=== PATIENT | male | born 1955 | race Caucasian/White ===

== ENCOUNTER 2023-01-09 02:32 | Inpatient (IN) | payer MEDICARE, OTHER ==
[2023-01-09] MEDS ORDERED: Ondansetron PF 4 MG/2 ML Vial IVP PRN (03:59)
[2023-01-09 04:01] VITALS: BMI 39.1
[2023-01-09] MEDS ORDERED: HumaLOG 300 UNITS/3 ML VIAL SC PRN (04:01)
[2023-01-09] MEDS ORDERED: Dextrose 5% in Water 1,000 ML IV PRN (04:01)
[2023-01-09] MEDS ORDERED: Dextrose 50% Abboject 50 ML SYRINGE SLOW IVP PRN (04:01)
[2023-01-09 06:39] LABS: Hemoglobin A1c 8.7 % (4.0-6.0)
[2023-01-09 06:40] LABS: #Eosinphils 0.1 thou/uL (0.0-0.7); #Lymphocytes 1.7 thou/uL (1.20-3.40); #Monocytes 1.2 thou/uL (0.11-0.59); #Neutrophils 9.2 thou/uL (1.40-6.50); %Basophils 0.2 % (0.0-1.0); %Eosinophils 1.1 % (0.0-10.0); %Monocytes 9.6 % (0.0-10.0); %Neutrophils 75.2 % (42.0-75.0); Hemoglobin 14.6 g/dL (14.0-18.0); Mean Corpuscular HGB CONC 33.6 g/dL (32.0-36.0); Mean Corpuscular Hemoglobin 29.5 pg (27.0-31.0); Mean Platelet Volume 8.8 fL (7.4-10.4); Platelet Count 130 10x3/uL (130-400); RBC Distribution Width 12.3 % (11.5-14.5); Red Blood Cell (RBC) Count 4.94 mill/uL (4.70-6.10); White Blood Cell (WBC) Count 12.3 10x3/uL (4.8-10.8)
[2023-01-09 06:54] LABS: Anion Gap 11 mmol/L (10-20); BUN (Urea Nitrogen) 14 mg/dL (8.4-25.7); Calc. Creatinine Clearance 87 mL/min (70-130); Calcium 8.9 mg/dL (7.8-10.44); Carbon Dioxide 25 mmol/L (23-31); Chloride 100 mmol/L (98-107); Estimated GFR 60; Glucose 215 mg/dL (80-115); Sodium 132 mmol/L (136-145)
[2023-01-09] MEDS ORDERED: Senokot S 8.6-50 MG TAB PO PRN (07:24)
[2023-01-09] MEDS: Vancomycin 1 GM in Premix Bag 1 BAG IVPB SCH ×2 (08:30→19:52)
[2023-01-09] MEDS: Sodium Chloride 0.9% 1,000 ML IV SCH (08:30)
[2023-01-09] MEDS: Cefepime 1 GM in Sodium Chloride 0.9% 100 ML IVPB SCH ×2 (10:14→21:32)
[2023-01-09] MEDS: Acetaminophen 325 MG TAB PO PRN ×2 (10:16→19:52)
[2023-01-09] MEDS: HumaLOG 300 UNITS/3 ML VIAL SC PRN (12:30)
[2023-01-09] MEDS: Nicotine 21 MG PATCH TD SCH (12:31)
[2023-01-09] MEDS: traMADol HCl 50 MG TAB PO PRN (19:51)
[2023-01-10] MEDS: Sodium Chloride 0.9% 1,000 ML IV SCH ×2 (00:09→21:10)
[2023-01-10] MEDS: Acetaminophen 325 MG TAB PO PRN ×3 (05:30→17:14)
[2023-01-10] MEDS: traMADol HCl 50 MG TAB PO PRN ×3 (05:30→18:23)
[2023-01-10] MEDS: HumaLOG 300 UNITS/3 ML VIAL SC PRN (05:31)
[2023-01-10 06:11] LABS: #Eosinphils 0.3 thou/uL (0.0-0.7); #Lymphocytes 1.8 thou/uL (1.20-3.40); #Monocytes 1.3 thou/uL (0.11-0.59); #Neutrophils 9.6 thou/uL (1.40-6.50); %Basophils 0.3 % (0.0-1.0); %Eosinophils 2.1 % (0.0-10.0); %Lymphocytes 14.1 % (21.0-51.0); %Monocytes 9.9 % (0.0-10.0); %Neutrophils 73.6 % (42.0-75.0); Hemoglobin 13.5 g/dL (14.0-18.0); Mean Corpuscular HGB CONC 34.1 g/dL (32.0-36.0); Mean Corpuscular Hemoglobin 29.9 pg (27.0-31.0); Mean Corpuscular Volume 87.7 fl (78.0-98.0); Mean Platelet Volume 8.4 fL (7.4-10.4); Platelet Count 134 10x3/uL (130-400); RBC Distribution Width 12.1 % (11.5-14.5); Red Blood Cell (RBC) Count 4.53 mill/uL (4.70-6.10)
[2023-01-10 06:39] LABS: ALT (SGPT) 8 U/L (8-55); AST (SGOT) 10 U/L (5-34); Albumin 3.2 g/dL (3.4-4.8); Alkaline Phosphatase 50 U/L (40-110); Anion Gap 13 mmol/L (10-20); BUN (Urea Nitrogen) 17 mg/dL (8.4-25.7); Calc. Creatinine Clearance 98 mL/min (70-130); Calcium 8.7 mg/dL (7.8-10.44); Carbon Dioxide 24 mmol/L (23-31); Cardiac Risk 4.7 (Less than 4.5); Chloride 101 mmol/L (98-107); Cholesterol 150 mg/dl (< 200 Desired); Estimated GFR 69; Globulin 3.1 g/dL (2.4-3.5); Glucose 149 mg/dL (80-115); HDL Cholesterol 32 mg/dL (>60 Neg Risk); LDL Cholesterol, Calculated 104 mg/dL; Potassium 3.9 mmol/L (3.5-5.1); Protein, Total 6.3 g/dL (5.8-8.1); Sodium 134 mmol/L (136-145); Triglycerides 72 mg/dL (Less than 150)
[2023-01-10 06:40] LABS: Vancomycin, Trough 10.5 ug/mL
[2023-01-10] MEDS ORDERED: Vancomycin 1.5 GRAM/300 ML BAG 1.5 GM in Premix Bag 1 BAG IVPB SCH (08:00)
[2023-01-10] MEDS: Cefepime 1 GM in Sodium Chloride 0.9% 100 ML IVPB SCH (08:28)
[2023-01-10] MEDS: Nicotine 21 MG PATCH TD SCH (12:04)
[2023-01-10] MEDS ORDERED: Ketorolac Tromethamine 30 MG/ML VIAL IVP PRN (18:12)
[2023-01-10] MEDS ORDERED: Acetaminophen 500 MG TAB PO PRN (18:12)
[2023-01-10] MEDS ORDERED: Ketorolac Tromethamine 30 MG/ML VIAL IVP SCH (18:15)
[2023-01-10] MEDS ORDERED: Acetaminophen 500 MG TAB PO SCH (18:15)
[2023-01-10] MEDS ORDERED: Piperacillin/Tazobactam 3.375 GM in Sodium Chloride 0.9% 100 ML IVPB SCH (18:30)
[2023-01-10] MEDS ORDERED: Cefepime 2 GM in Sodium Chloride 0.9% 100 ML IVPB SCH (21:00)
[2023-01-10] MEDS: Piperacillin/Tazobactam 3.375 GM in Sodium Chloride 0.9% 100 ML IVPB SCH (21:16)
[2023-01-10] MEDS: Morphine 4 MG/ML VIAL SLOW IVP PRN (21:16)
[2023-01-11] MEDS: Piperacillin/Tazobactam 3.375 GM in Sodium Chloride 0.9% 100 ML IVPB SCH ×3 (05:28→21:19)
[2023-01-11] MEDS: Nicotine 21 MG PATCH TD SCH (12:12)
[2023-01-11] MEDS ORDERED: fentaNYL 50 mcg/mL 1 mL Vial ONE ×3 (12:46→14:20)
[2023-01-11] MEDS ORDERED: fentaNYL PF 100 MCG/2 ML SYRINGE ONE (12:47)
[2023-01-11] MEDS ORDERED: Sodium Chloride 0.9% 100 ML ONE (13:04)
[2023-01-11] MEDS ORDERED: Piperacillin/Tazobactam 3.375 GM VIAL ONE (13:04)
[2023-01-11] MEDS ORDERED: PROPOFOL 200 MG/20 ML VIAL ONE (13:19)
[2023-01-11] MEDS ORDERED: Lidocaine 1% PF 5 ML VIAL ONE (13:19)
[2023-01-11] MEDS ORDERED: Cyclobenzaprine 10 MG TAB PO PRN (15:14)
[2023-01-11] MEDS ORDERED: traMADol HCl 50 MG TAB PO PRN (15:14)
[2023-01-11] MEDS: Dextrose 5 %-0.45 % NaCl 1,000 ML IV SCH (15:43)
[2023-01-11] MEDS: traMADol HCl 50 MG TAB PO SCH ×2 (17:46→22:28)
[2023-01-11] MEDS: Sodium Chloride 0.9% 1,000 ML IV SCH (17:50)
[2023-01-11] MEDS: Acetaminophen 500 MG TAB PO SCH ×2 (18:20→22:27)
[2023-01-12] MEDS: Sodium Chloride 0.9% 1,000 ML IV SCH (03:20)
[2023-01-12] MEDS: Piperacillin/Tazobactam 3.375 GM in Sodium Chloride 0.9% 100 ML IVPB SCH ×3 (05:36→20:43)
[2023-01-12] MEDS: traMADol HCl 50 MG TAB PO SCH ×4 (05:37→22:23)
[2023-01-12] MEDS: Acetaminophen 500 MG TAB PO SCH ×4 (05:37→22:23)
[2023-01-12 08:10] LABS: #Eosinphils 0.3 thou/uL (0.0-0.7); #Lymphocytes 1.7 thou/uL (1.20-3.40); #Monocytes 0.8 thou/uL (0.11-0.59); #Neutrophils 5.4 thou/uL (1.40-6.50); %Basophils 0.5 % (0.0-1.0); %Eosinophils 4.1 % (0.0-10.0); %Lymphocytes 20.8 % (21.0-51.0); %Neutrophils 64.7 % (42.0-75.0); Hemoglobin 12.7 g/dL (14.0-18.0); Mean Corpuscular Hemoglobin 30.2 pg (27.0-31.0); Mean Corpuscular Volume 88.8 fl (78.0-98.0); Mean Platelet Volume 8.1 fL (7.4-10.4); Platelet Count 176 10x3/uL (130-400); Red Blood Cell (RBC) Count 4.19 mill/uL (4.70-6.10); White Blood Cell (WBC) Count 8.3 10x3/uL (4.8-10.8)
[2023-01-12 08:54] LABS: Anion Gap 11 mmol/L (10-20); BUN (Urea Nitrogen) 27 mg/dL (8.4-25.7); Calc. Creatinine Clearance 74 mL/min (70-130); Calcium 8.6 mg/dL (7.8-10.44); Carbon Dioxide 24 mmol/L (23-31); Chloride 101 mmol/L (98-107); Estimated GFR 49; Glucose 103 mg/dL (80-115); Potassium 3.9 mmol/L (3.5-5.1); Sodium 132 mmol/L (136-145)
[2023-01-12] MEDS: Calcium Carbonate 500 MG ChewTAB PO PRN ×2 (09:46→18:03)
[2023-01-12] MEDS: Dextrose 5 %-0.45 % NaCl 1,000 ML IV SCH (09:49)
[2023-01-12] MEDS: Morphine 4 MG/ML VIAL SLOW IVP PRN (11:04)
[2023-01-12] MEDS: Nicotine 21 MG PATCH TD SCH (12:57)
[2023-01-12] MEDS ORDERED: Sodium Chloride 0.9% 1,000 ML IV SCH (13:00)
[2023-01-13] MEDS: Calcium Carbonate 500 MG ChewTAB PO PRN ×2 (01:14→10:09)
[2023-01-13] MEDS: Piperacillin/Tazobactam 3.375 GM in Sodium Chloride 0.9% 100 ML IVPB SCH ×2 (05:15→13:29)
[2023-01-13] MEDS: Acetaminophen 500 MG TAB PO SCH ×2 (05:16→10:10)
[2023-01-13] MEDS: traMADol HCl 50 MG TAB PO SCH ×2 (05:17→13:27)
[2023-01-13] MEDS: Morphine 4 MG/ML VIAL SLOW IVP PRN (09:07)
[2023-01-13 13:00] VITALS: TEMP 97.8
[2023-01-13] MEDS: Nicotine 21 MG PATCH TD SCH (13:29)
[2023-01-13 13:38] VITALS: BP 169/91
== END 2023-01-13 16:09 | disposition home or self-care (01) | DRG 603 ==
LOC: SJJU 03:36
PROVIDERS: ADMIT Internal Medicine; ATTEND Internal Medicine
PROC: 0J990ZZ Drainage of Buttock Subcutaneous Tissue and Fascia, Open Approach (ICD-10-PCS; principal; 2023-01-11)
DX: L03.317 Cellulitis of buttock (principal); K61.1 Rectal abscess; N17.9 Acute kidney failure, unspecified; L02.31 Cutaneous abscess of buttock; F17.210 Nicotine dependence, cigarettes, uncomplicated; E78.5 Hyperlipidemia, unspecified; L05.91 Pilonidal cyst without abscess; E11.65 Type 2 diabetes mellitus with hyperglycemia; Z79.4 Long term (current) use of insulin; Z71.6 Tobacco abuse counseling
CPT/HCPCS: 36415; 36416; 80048; 80053; 80061; 80202; 83036; 85025; 87070; 87076; 87205; 97139; J0692; J1650; J1815; J1885; J2270; J2543; J2704; J3010; J3370; J3370-JW; J3490; J7050